=== PATIENT | female | born 1955 | race African-American/Black ===

== ENCOUNTER 2017-05-28 12:19 | Emergency (ER) | payer MEDICARE, MEDICAID ==
[~2017-05-28] VITALS: Ht 162.6 cm; Wt 23.8 kg
[2017-05-28] MEDS ORDERED: LEVO100T13 PO (12:24)
[2017-05-28] MEDS ORDERED: MELO-108 PO (12:28)
[2017-05-28] MEDS ORDERED: TRAZ-147 PO (12:28)
[2017-05-28] MEDS ORDERED: ZOLP5TAB8 PO (12:28)
[2017-05-28] MEDS ORDERED: COLC0.6T68 PO (12:28)
[2017-05-28 14:07] LABS: EOSINOPHILS % (AUTO) 0.1 % (1.0-6.0); HEMATOCRIT 38.5 % (36-46); LYMPHOCYTES # (AUTO) 0.6 K/uL (1.0-4.8); LYMPHOCYTES % (AUTO) 5.3 % (22.0-44.0); MEAN CORPUSCULAR HGB CONC 33.6 G/dL (31.0-37.0); MEAN CORPUSCULAR VOLUME 92 fL (80-100); MONOCYTES # (AUTO) 0.7 K/uL (0.1-1.0); PLATELET COUNT (AUTO) 263 K/uL (150-450); RED BLOOD CELL COUNT(AUTO) 4.17 MIL/uL (4.00-5.20); RED CELL DISTRIBUTION WIDTH 14.3 % (11.5-14.5); WHITE BLOOD COUNT (AUTO) 11.3 K/uL (4.5-11.0)
[2017-05-28 14:13] LABS: NEUTROPHILS % (AUTO) 88.6 % (40.0-70.0)
[2017-05-28 14:17] LABS: ANION GAP 9 mmol/L (8-16); CALCIUM, TOTAL 9.8 mg/dL (8.8-10.5); CARBON DIOXIDE 30 mmol/L (22-29); CHLORIDE 101 mmol/L (98-107); CREATININE 1.28 mg/dL (0.60-1.30); GLOMERULAR FILTR. RATE CALC 51 mL/min (>60); SODIUM SERUM 140 mmol/L (136-145); UREA NITROGEN, BLOOD 18 mg/dL (7-18)
[2017-05-28 14:29] LABS: PROTHROMBIN TIME 10.7 SEC (9.4-11.6)
[2017-05-28 14:35] LABS: B-TYPE NATRIURETIC PEPTIDE 253 pg/mL (0-100)
[2017-05-28 14:42] LABS: ALANINE AMINOTRANSFERASE 14 U/L (12-78); ALBUMIN 2.6 g/dL (3.4-5.0); ASPARTATE AMINOTRANSFERASE 20 U/L (15-37); BILIRUBIN,TOTAL 0.6 mg/dL (0.1-1.0); CREATINE KINASE MB 2.1 ng/mL (0-5); CREATINE KINASE, TOTAL 135 U/L (26-192); TOTAL PROTEIN, SERUM 7.8 g/dL (6.4-8.2)
[2017-05-28 14:44] LABS: RBC MORPHOLOGY COMMENT NORMAL RBC MORPH
[2017-05-28 16:33] VITALS: BP 139/78
== END 2017-05-28 16:52 | disposition home or self-care (01) ==
LOC: EMS 12:20
DX: S00.01XA Abrasion of scalp, initial encounter (principal); L03.114 Cellulitis of left upper limb; E03.9 Hypothyroidism, unspecified; F32.9 Major depressive disorder, single episode, unspecified; M10.9 Gout, unspecified; Z86.73 Personal history of transient ischemic attack (TIA), and cerebral infarction without residual deficits; W01.198A Fall on same level from slipping, tripping and stumbling with subsequent striking against other object, initial encounter; Y93.89 Activity, other specified; Y92.89 Other specified places as the place of occurrence of the external cause; Y99.8 Other external cause status
CPT/HCPCS: 70450; 93005; 99285

== ENCOUNTER → 2017-08-22 | Outpatient (CLI) | payer MEDICARE, MEDICAID ==
[~2017-08-22] MED LIST: COLC0.6T68 PO; LEVO100T13 PO; MELO-108 PO; TRAZ-147 PO; ZOLP5TAB8 PO
[2017-08-22 16:19] LABS: BASOPHILS % (AUTO) 2.8 % (0.0-2.0); EOSINOPHILS % (AUTO) 3.1 % (1.0-6.0); HEMATOCRIT 34.3 % (36-46); HEMOGLOBIN 11.3 g/dL (12.0-16.0); LYMPHOCYTES # (AUTO) 1.8 K/uL (1.0-4.8); LYMPHOCYTES % (AUTO) 41.8 % (22.0-44.0); MEAN CORPUSCULAR HEMOGLOBIN 29.9 pg (26.0-34.0); MEAN CORPUSCULAR HGB CONC 32.9 G/dL (31.0-37.0); MEAN CORPUSCULAR VOLUME 91 fL (80-100); MONOCYTES # (AUTO) 0.3 K/uL (0.1-1.0); MONOCYTES % (AUTO) 6.9 % (2.0-9.0); NEUTROPHILS % (AUTO) 45.4 % (40.0-70.0); PLATELET COUNT (AUTO) 389 K/uL (150-450); RED BLOOD CELL COUNT(AUTO) 3.78 MIL/uL (4.00-5.20); RED CELL DISTRIBUTION WIDTH 14.9 % (11.5-14.5)
[2017-08-22 16:55] LABS: ALANINE AMINOTRANSFERASE 10 U/L (12-78); ALKALINE PHOSPHATASE 88 U/L (46-116); ANION GAP 9 mmol/L (8-16); ASPARTATE AMINOTRANSFERASE 33 U/L (15-37); BILIRUBIN,TOTAL 0.2 mg/dL (0.1-1.0); CALCIUM, TOTAL 8.9 mg/dL (8.8-10.5); CARBON DIOXIDE 27 mmol/L (22-29); CHLORIDE 101 mmol/L (98-107); CHOL/HDL RATIO 4.1 (3.9-5.7); CHOLESTEROL 181 mg/dL (131-200); CREATININE 1.06 mg/dL (0.60-1.30); FREE THYROXINE INDEX 4.1 (1.4-4.5); GLOMERULAR FILTR. RATE CALC > 60 mL/min (>60); GLUCOSE,RANDOM 72 mg/dL (70-110); HDL CHOLESTEROL 44 mg/dL (40-60); LDL CHOL (CALC.) 117 mg/dL (0-130); POTASSIUM 4.5 mmol/L (3.5-5.1); SODIUM SERUM 137 mmol/L (136-145); T3 UPTAKE 36 % (31-39); TOTAL PROTEIN, SERUM 7.9 g/dL (6.4-8.2); TRIGLYCERIDES 98 mg/dL (15-150); UREA NITROGEN, BLOOD 18 mg/dL (7-18)
[2017-08-22 17:07] LABS: THYROID STIMULATING HORMONE < 0.01 uIU/mL (0.36-3.74)
== END | disposition home or self-care (01) ==
LOC: LABPV 12:15
PROVIDERS: ATTEND Family Medicine
DX: Z13.9 Encounter for screening, unspecified (principal); E03.9 Hypothyroidism, unspecified
CPT/HCPCS: 84436; 84443; 84479

== ENCOUNTER 2017-09-04 14:56 | Emergency (ER) | payer MEDICARE, MEDICAID ==
[~2017-09-04] VITALS: Ht 147.3 cm; Wt 49.5 kg
[2017-09-04] MEDS ORDERED: LEVO50 PO (15:23)
[2017-09-04] MEDS ORDERED: LORA0.5T2 PO (15:23)
[2017-09-04 18:19] VITALS: BP 145/84
== END 2017-09-04 18:20 | disposition home or self-care (01) ==
LOC: EMS 14:57
DX: H53.8 Other visual disturbances (principal); T42.6X5A Adverse effect of other antiepileptic and sedative-hypnotic drugs, initial encounter; E03.9 Hypothyroidism, unspecified; F32.9 Major depressive disorder, single episode, unspecified; H40.9 Unspecified glaucoma; Z90.49 Acquired absence of other specified parts of digestive tract; Y92.89 Other specified places as the place of occurrence of the external cause
CPT/HCPCS: 99283